=== PATIENT | male | born 1975 | race Two or more races ===

== ENCOUNTER → 2019-08-14 | Outpatient (CLI) | payer MEDICAID ==
[~2019-08-14] VITALS: Ht 180.3 cm; Wt 90.7 kg
[~2019-08-14] MED LIST: ADENOSINE 76 MG in GIVE UN-DILUTED 0 ML IV ONE; ADENOSINE 90 MG/30 ML INJ IV ONE
== END | disposition home or self-care (01) ==
LOC: Rad HDHVI 13:34
PROVIDERS: ATTEND Internal Medicine Cardiovascular Disease
DX: R07.9 Chest pain, unspecified (principal); R06.02 Shortness of breath; R42 Dizziness and giddiness; I25.2 Old myocardial infarction; I10 Essential (primary) hypertension; E78.00 Pure hypercholesterolemia, unspecified; Z95.0 Presence of cardiac pacemaker; Z86.74 Personal history of sudden cardiac arrest
CPT/HCPCS: 78452; 93005; 96374; 96375; A9500; J0153

== ENCOUNTER → 2019-08-15 | Outpatient (CLI) | payer MEDICAID | END | disposition home or self-care (01) | LOC: Rad HDHVI 13:38 | PROVIDERS: ATTEND Internal Medicine Cardiovascular Disease | DX: I08.3 Combined rheumatic disorders of mitral, aortic and tricuspid valves (principal); I11.0 Hypertensive heart disease with heart failure; I50.9 Heart failure, unspecified; R07.9 Chest pain, unspecified | CPT/HCPCS: 93306 ==

== ENCOUNTER → 2023-08-12 | Outpatient (CLI) | payer MEDICARE, MEDICAID | END | disposition home or self-care (01) | LOC: Rad HDHVI 15:59 | PROVIDERS: ATTEND Internal Medicine Cardiovascular Disease | DX: I08.3 Combined rheumatic disorders of mitral, aortic and tricuspid valves (principal); R07.89 Other chest pain | CPT/HCPCS: 93306 ==

== ENCOUNTER → 2023-08-13 | Outpatient (CLI) | payer MEDICARE, MEDICAID ==
[~2023-08-13] VITALS: Ht 180.3 cm; Wt 93.0 kg
[~2023-08-13] MED LIST changes: -ADENOSINE 76 MG in GIVE UN-DILUTED 0 ML IV ONE; +ADENOSINE 78 MG in GIVE UN-DILUTED 0 ML IV ONE
== END | disposition home or self-care (01) ==
LOC: Rad HDHVI 08:47
PROVIDERS: ATTEND Internal Medicine Cardiovascular Disease
DX: I11.0 Hypertensive heart disease with heart failure (principal); I50.22 Chronic systolic (congestive) heart failure; I25.10 Atherosclerotic heart disease of native coronary artery without angina pectoris; R07.89 Other chest pain; I48.91 Unspecified atrial fibrillation; I25.2 Old myocardial infarction; E78.00 Pure hypercholesterolemia, unspecified; Z95.810 Presence of automatic (implantable) cardiac defibrillator
CPT/HCPCS: 78452; 93005; 96374; 96375; A9500; J0153

== ENCOUNTER 2023-09-09 07:35 | Inpatient (IN) | payer MEDICARE, MEDICAID ==
[2023-09-06 13:12] LABS: Basophils # (auto) 0.1 10 ^3/uL (0-0.2); Basophils % (auto) 1.2 % (0.0-2.0); Eosinophils # (auto) 0.2 10 ^3/uL (0-0.8); Lymphocytes # (auto) 0.7 10 ^3/uL (0.4-5.4); Monocytes # (auto) 0.7 10 ^3/uL (0-1.3); White Blood Cell 6.6 10^3/uL (4.4-10.8)
[2023-09-06 13:14] LABS: Eosinophils % (auto) 2.9 % (0.0-7.0); Hematocrit 41.9 % (41.0-53.0); Hemoglobin 13.1 g/dL (13.5-17.5); Lymphocytes % (auto) 10.5 % (10.0-50.0); Mean Corpuscular Hemoglobin 24.8 pg (28.0-32.0); Mean Corpuscular Hgb Conc. 31.2 g/dL (32.0-36.0); Mean Corpuscular Volume 79.5 fL (80.0-100.0); Monocytes % (auto) 10.1 % (0.0-12.0); Neutrophils % (auto) 75.3 % (37.0-80.0); Nucleated Red Blood Cells % 0.1 %; Red Blood Cells 5.27 10^6/uL (4.5-5.90); Red Cell Distribution Width 19.7 % (11.8-14.3)
[2023-09-06 13:31] LABS: Chloride 113 mmol/L (98-107); INR 1.25 (0.9-1.15); Partial Thromboplastin Time 28.5 SEC (24.5-34.5); Potassium 4.7 mmol/L (3.5-5.1); Prothrombin Time 12.9 sec (9.3-11.8); Sodium 142 mmol/L (136-145)
[2023-09-06 13:32] LABS: Anion Gap 4 (5-15); Carbon Dioxide 25 mmol/L (20-30)
[2023-09-06 13:33] LABS: Calcium 8.4 mg/dL (8.5-10.1)
[2023-09-06 13:38] LABS: BUN/Creatinine Ratio 17.8 (10.0-20.0); Blood Urea Nitrogen 16 mg/dL (9-23); Glucose 80 mg/dL (74-106)
[2023-09-09] VITALS (13 sets, daily range): BP systolic 131–153; BP diastolic 91–110; PULSE 78–97; RESP 12–20; TEMP 97.6–98.7; O2SAT 96–99
[~2023-09-09] VITALS: Ht 180.3 cm; Wt 99.0 kg
[~2023-09-09 07:35] MED LIST changes: -ADENOSINE 78 MG in GIVE UN-DILUTED 0 ML IV ONE; -ADENOSINE 90 MG/30 ML INJ IV ONE; +ASPI-543 PO; +ATOR-47 PO; +CARV25TA55 PO; +FURO40TA4 PO; +PANT40T PO; +RIVA20TA PO; +SACU1TAB7 PO; +SPIR25TA8 PO
[2023-09-09] MEDS: VANCOMYCIN 1GM/200ML 200 ML IV ONE (09:15)
[2023-09-09] MEDS: LIDOCAINE 2%HCL (LOCAL ANESTH.) INJ 20ML MDV ONE (10:22)
[2023-09-09] MEDS: MIDAZOLAM HCL 2MG/2ML 2ml VIAL (1mg/ml) ONE (10:22)
[2023-09-09] MEDS: fentaNYL CITRATE 100 MCG/2 ML VL ONE (10:22)
[2023-09-09] MEDS: VANCOMYCIN HCL 1000 MG VL ONE (10:24)
[2023-09-09] MEDS: HYDROmorphone HCL 2 MG/ML VL/or syr ONE (10:51)
[2023-09-09] MEDS: FUROSEMIDE 20 MG/2 ML VIAL ONE (11:20)
[2023-09-09] MEDS: NALOXONE HCL 0.4 MG/ML VIAL ONE ×2 (11:22→11:26)
[2023-09-09] MEDS: FLUMAZENIL 0.1 MG/ML INJ 10ML MDV IV ONE (11:22)
[2023-09-09] MEDS: ceFAZolin 1GM VL ONE (11:33)
[2023-09-09] MEDS ORDERED: NITROGLYCERIN 0.4 MG SL TAB SL PRN (12:15)
[2023-09-09] MEDS ORDERED: ACETAMINOPHEN 325 MG TAB PO PRN (12:15)
[2023-09-09] MEDS ORDERED: MORPHINE SULFATE INJ 2 MG/ml SYRG IV PRN (12:15)
[2023-09-09] MEDS: HYDROcodone-ACET 5/325MG TAB PO PRN (14:28)
[2023-09-09] MEDS ORDERED: RIV20T PO (14:47)
[2023-09-09] MEDS ORDERED: ASPI81CH49 PO (14:47)
[2023-09-09] MEDS: ceFAZolin 1GM/50ML 50 ML IV SCH (17:01)
[2023-09-09] MEDS ORDERED: KETOROLAC TROMETH 30 MG/ML 1ML VIAL IM ONE (17:45)
[2023-09-09] MEDS: KETOROLAC TROMETH 30 MG/ML 1ML VIAL IM ONE (20:15)
[2023-09-09] MEDS: CARVEDILOL 12.5 MG TAB PO SCH (21:42)
[2023-09-09] MEDS: VANCOMYCIN 1GM/200ML 200 ML IV SCH (21:45)
[2023-09-09] MEDS: Sacubitril-Valsartan (Entresto 49-51 mg) PO SCH (22:00)
[2023-09-10 05:00] VITALS: BP 131/84; PULSE 51; RESP 21; TEMP 98; O2SAT 99
[2023-09-10 08:00] VITALS: BP 127/84; PULSE 62; PULSE 69; RESP 20; TEMP 97.6; O2SAT 99
[2023-09-10 09:00] VITALS: BP 127/84; PULSE 62; RESP 20; TEMP 97.6; O2SAT 99
[2023-09-10] MEDS: PANTOPRAZOLE 40 MG TAB PO SCH (10:30)
[2023-09-10] MEDS: FUROSEMIDE 40 MG TAB PO SCH (10:31)
[2023-09-10] MEDS: SPIRONOLACTONE 25 MG TAB PO SCH (10:32)
[2023-09-10 13:00] VITALS: BP 132/77; PULSE 67; RESP 20; TEMP 98.1; O2SAT 96
[2023-09-10 16:15] VITALS: BP 127/84; PULSE 62; RESP 20; TEMP 97.6; O2SAT 99
[2023-09-10 16:36] VITALS: BP 110/72; PULSE 60; RESP 18; TEMP 98; O2SAT 95
[2023-09-10] MEDS ORDERED: ATORVASTATIN 20 MG TAB PO SCH (22:00)
== END 2023-09-10 17:38 | disposition home or self-care (01) | DRG 277 ==
LOC: CATH 07:35 → TELE 12:14 → TELE-WESTW 16:01
PROVIDERS: ADMIT Internal Medicine Cardiovascular Disease; ATTEND Internal Medicine Cardiovascular Disease
PROC: 0JPT0PZ Removal of Cardiac Rhythm Related Device from Trunk Subcutaneous Tissue and Fascia, Open Approach (ICD-10-PCS; principal; 2023-09-09)
PROC: 0JH608Z Insertion of Defibrillator Generator into Chest Subcutaneous Tissue and Fascia, Open Approach (ICD-10-PCS; 2023-09-09)
PROC: 02HK3KZ Insertion of Defibrillator Lead into Right Ventricle, Percutaneous Approach (ICD-10-PCS; 2023-09-09)
DX: T82.111A Breakdown (mechanical) of cardiac pulse generator (battery), initial encounter (principal); I42.0 Dilated cardiomyopathy; I50.20 Unspecified systolic (congestive) heart failure; Z95.810 Presence of automatic (implantable) cardiac defibrillator
CPT/HCPCS: 33216; 33234; 36415; 71045; 80048; 85025; 85610; 85730; 93005; 99152; G0378; J0690; J2250